=== PATIENT | female | born 1970 | race African-American/Black ===

== ENCOUNTER 2025-03-27 16:35 | Emergency (ER) | payer MEDICAID ==
[~2025-03-27] VITALS: Ht 170.2 cm; Wt 86.2 kg
[2025-03-27 16:52] VITALS: TEMP 98.3
[2025-03-27] MEDS ORDERED: TDAP [DIPH/PERTUSSIS/TET] 0.5 ML VIAL IM ONE (17:23)
[2025-03-27] MEDS: TDAP [DIPH/PERTUSSIS/TET] 0.5 ML VIAL IM ONE (17:27)
[2025-03-27] MEDS ORDERED: SULF1TAB48 PO (17:27)
[2025-03-27] MEDS ORDERED: IBUP-1490 PO (18:47)
[2025-03-27 19:23] VITALS: BP 120/80; O2SAT 97
== END 2025-03-27 19:15 | disposition home or self-care (01) ==
LOC: ER 16:47
DX: M79.661 Pain in right lower leg (principal); Z88.1 Allergy status to other antibiotic agents; W55.01XA Bitten by cat, initial encounter; Y93.89 Activity, other specified; Y92.89 Other specified places as the place of occurrence of the external cause; Y99.9 Unspecified external cause status
CPT/HCPCS: 90715; 93971-TC